=== PATIENT | male | born 1960 | race Caucasian/White ===

== ENCOUNTER 2020-11-05 13:41 | Inpatient (IN) ==
[2020-11-05] MEDS ORDERED: SODIUM CHLORIDE 0.9% 1,000 ML IV STA (14:08)
[2020-11-05 14:43] LABS: Basophils % 0.2 % (0.0-0.8); Hematocrit 47.6 VOL% (42.0-52.0); Hemoglobin 15.7 GM/DL (14.0-18.0); Immature Granulocytes Absolute 0.05 #; Lymphocytes # 0.9 10*3/uL (1.4-4.0); Lymphocytes % 19.3 % (21.2-54.2); Mean Corpuscular Volume 86.9 FL (87-102); Mean Platelet Volume 10.3 FL (9.6-12.0); Monocytes % 5.1 % (1.7-12.7); Neutrophils % 74.4 % (38.7-73.9); Platelet Count 151 T/CUMM (130-400); Red Blood Count 5.48 MC/CUMM (3.8-5.5); Red Cell Distribution Width 12.3 % (9.3-17.3); White Blood Count 4.9 T/CUMM (4-12)
[2020-11-05 14:57] LABS: Calcium 8.3 MG/DL (8.5-10.1); Osmolality,Calculated 268.8 MOS/KG (273-304); Potassium 4.2 MMOL/L (3.5-5.1)
[2020-11-05] MEDS ORDERED: GLUCAGON 1 MG VIAL IM PRN (15:49)
[2020-11-05] MEDS ORDERED: ONDANSETRON 4 MG/2 ML VIAL IV PRN (15:49)
[2020-11-05] MEDS ORDERED: diphenhydrAMINE CAP 25 MG CAPSULE PO PRN (15:49)
[2020-11-05] MEDS ORDERED: DEXTROSE 50% 25 GM/50 ML VIAL IV PRN (15:49)
[2020-11-05] MEDS ORDERED: AZITHROMYCIN INJ 500 MG in SODIUM CHLORIDE 0.9% 250 ML IV ONE (15:49)
[2020-11-05] MEDS ORDERED: MELATONIN 3 MG TABLET PO PRN (15:49)
[2020-11-05] MEDS ORDERED: hydrALAZINE 20 MG/1 ML VIAL IV PRN (15:49)
[2020-11-05] MEDS ORDERED: guaiFENesin/DM ER 600-30 MG TABLET PO PRN (15:49)
[2020-11-05] MEDS: SODIUM CHLORIDE 0.9% 1,000 ML IV SCH (16:20)
[2020-11-05] MEDS: cefTRIAXone 1,000 MG in SODIUM CHLORIDE 0.9% 100 ML IV SCH (17:16)
[2020-11-05] MEDS: ENOXAPARIN 60 MG/0.6 ML SYRINGE SUBCUT SCH (17:18)
[2020-11-05] MEDS: ACETAMINOPHEN 325 MG TABLET PO PRN (18:18)
[2020-11-05] MEDS: FAMOTIDINE 20 MG TABLET PO SCH (21:05)
[2020-11-05] MEDS: ASCORBIC ACID 500 MG TABLET PO SCH (21:05)
[2020-11-06] MEDS: ENOXAPARIN 60 MG/0.6 ML SYRINGE SUBCUT SCH (04:23)
[2020-11-06] MEDS: SODIUM CHLORIDE 0.9% 1,000 ML IV SCH ×2 (04:23→18:10)
[2020-11-06] MEDS: ACETAMINOPHEN 325 MG TABLET PO PRN ×3 (04:33→20:50)
[2020-11-06 05:41] LABS: Hematocrit 43.3 VOL% (42.0-52.0); Hemoglobin 14.5 GM/DL (14.0-18.0); Immature Granulocytes % 0.8 %; Immature Granulocytes Absolute 0.04 #; Lymphocytes # 1.5 10*3/uL (1.4-4.0); Lymphocytes % 30.7 % (21.2-54.2); Mean Corpuscular HGB Conc 33.5 GM/DL (32-36); Mean Corpuscular Volume 87.5 FL (87-102); Mean Platelet Volume 10.7 FL (9.6-12.0); Monocytes % 6.8 % (1.7-12.7); Neutrophils % 61.7 % (38.7-73.9); Platelet Count 120 T/CUMM (130-400); Red Blood Count 4.95 MC/CUMM (3.8-5.5); Red Cell Distribution Width 12.4 % (9.3-17.3)
[2020-11-06 05:58] LABS: PT Patient Result 11.2 SECS (10.5-12.0)
[2020-11-06 06:04] LABS: Atypical Lymphocytes Few; Band Neutrophils 4 % (0-10); Hypochromasia Slight; Lymphocytes 21 % (20-55); Microcytosis 1+; Segmented Neutrophils 65 % (50-85); Total Cells Counted 100
[2020-11-06 06:25] LABS: Albumin 2.7 G/DL (3.4-5.0); Bilirubin,Total 0.4 MG/DL (0.20-1.00); Ferritin 1929.8 ng/mL (26-388); Osmolality,Calculated 271.5 MOS/KG (273-304); Potassium 4.1 MMOL/L (3.5-5.1); Risk Ratio 3.44; Total Protein 6.1 G/DL (6.4-8.2); VLDL Cholesterol 37.2 MG/DL
[2020-11-06 07:31] LABS: Sedimentation Rate-Westergren 25 MM/HR (0-20)
[2020-11-06] MEDS: FAMOTIDINE 20 MG TABLET PO SCH ×2 (08:50→20:49)
[2020-11-06] MEDS: ZINC GLUCONATE 50 MG TABLET PO SCH (08:50)
[2020-11-06] MEDS: CHOLECALCIFEROL 1,000 UNIT TABLET PO SCH (08:51)
[2020-11-06] MEDS: ASCORBIC ACID 500 MG TABLET PO SCH ×2 (08:51→20:49)
[2020-11-06] MEDS: DEXAMETHASONE 4 MG/1 ML VIAL IV SCH (08:51)
[2020-11-06] MEDS: CETIRIZINE 10 MG TABLET PO SCH (08:51)
[2020-11-06] MEDS: APIXABAN 5 MG TABLET PO SCH ×2 (08:51→20:51)
[2020-11-06] MEDS ORDERED: ACETAMINOPHEN 325 MG TABLET PO PRN (09:00)
[2020-11-06] MEDS ORDERED: diphenhydrAMINE 50 MG/1 ML VIAL IV PRN ×2 (09:00)
[2020-11-06] MEDS ORDERED: ONDANSETRON 4 MG/2 ML VIAL IV PRN (09:00)
[2020-11-06] MEDS ORDERED: methylPREDNISolone SOD SUC 125 MG/2 ML VIAL IV PRN (09:00)
[2020-11-06] MEDS ORDERED: CASIRIVIMAB/IMDEVIMAB 1,200 MG in SODIUM CHLORIDE 0.9% 100 ML IV ONE (09:00)
[2020-11-06] MEDS ORDERED: MECLIZINE 25 MG TABLET PO PRN (09:00)
[2020-11-06] MEDS: METOPROLOL TARTRATE 25 MG TABLET PO SCH ×2 (09:48→23:09)
[2020-11-06] MEDS: cefTRIAXone 1,000 MG in SODIUM CHLORIDE 0.9% 100 ML IV SCH (11:09)
[2020-11-06] MEDS ORDERED: KETOROLAC 30 MG/1 ML VIAL IV ONE (18:24)
[2020-11-07] MEDS: SODIUM CHLORIDE 0.9% 1,000 ML IV SCH (02:04)
[2020-11-07 05:55] LABS: Basophils % 0.1 % (0.0-0.8); Hematocrit 43.6 VOL% (42.0-52.0); Hemoglobin 14.1 GM/DL (14.0-18.0); Immature Granulocytes % 1.1 %; Lymphocytes % 11.6 % (21.2-54.2); Mean Corpuscular HGB Conc 32.3 GM/DL (32-36); Mean Corpuscular Volume 89.3 FL (87-102); Mean Platelet Volume 10.4 FL (9.6-12.0); Monocytes % 5.6 % (1.7-12.7); Neutrophils % 81.6 % (38.7-73.9); Platelet Count 149 T/CUMM (130-400); Red Blood Count 4.88 MC/CUMM (3.8-5.5); Red Cell Distribution Width 12.5 % (9.3-17.3); White Blood Count 8.8 T/CUMM (4-12)
[2020-11-07 06:31] LABS: Ferritin 2368.6 ng/mL (26-388); Osmolality,Calculated 280.8 MOS/KG (273-304); Potassium 4.4 MMOL/L (3.5-5.1)
[2020-11-07] MEDS: METOPROLOL TARTRATE 25 MG TABLET PO SCH ×2 (08:40→20:52)
[2020-11-07] MEDS: APIXABAN 5 MG TABLET PO SCH ×2 (08:40→20:53)
[2020-11-07] MEDS: DEXAMETHASONE 4 MG/1 ML VIAL IV SCH (08:40)
[2020-11-07] MEDS: MELOXICAM 7.5 MG TABLET PO SCH (08:41)
[2020-11-07] MEDS: PANTOPRAZOLE 40 MG TABLET PO SCH (08:41)
[2020-11-07] MEDS: OMEGA 3 ACID ETHYL ESTERS 1 GM CAPSULE PO SCH (08:41)
[2020-11-07] MEDS: cefTRIAXone 1,000 MG in SODIUM CHLORIDE 0.9% 100 ML IV SCH (08:41)
[2020-11-07] MEDS: FAMOTIDINE 20 MG TABLET PO SCH ×2 (08:41→20:53)
[2020-11-07] MEDS: CHOLECALCIFEROL 1,000 UNIT TABLET PO SCH (08:57)
[2020-11-07] MEDS: ASCORBIC ACID 500 MG TABLET PO SCH ×2 (08:57→20:52)
[2020-11-07] MEDS: traMADol 50 MG TABLET PO SCH (08:57)
[2020-11-07] MEDS: AZITHROMYCIN 250 MG TABLET PO SCH (08:58)
[2020-11-07] MEDS: CETIRIZINE 10 MG TABLET PO SCH (08:58)
[2020-11-07] MEDS: SIMVASTATIN 20 MG TABLET PO SCH (08:58)
[2020-11-07] MEDS: ZINC GLUCONATE 50 MG TABLET PO SCH (08:58)
[2020-11-07] MEDS ORDERED: REMDESIVIR 200 MG in SODIUM CHLORIDE 0.9% 210 ML IV ONE (09:00)
[2020-11-07] MEDS: ALBUTEROL INHALER 18 GM INH SCH ×2 (16:18→21:16)
[2020-11-08] MEDS: ALBUTEROL INHALER 18 GM INH SCH ×3 (05:19→13:00)
[2020-11-08 07:01] LABS: Basophils % 0.1 % (0.0-0.8); Hematocrit 40.3 VOL% (42.0-52.0); Hemoglobin 13.2 GM/DL (14.0-18.0); Immature Granulocytes % 1.7 %; Immature Granulocytes Absolute 0.12 #; Lymphocytes % 13.9 % (21.2-54.2); Mean Corpuscular HGB Conc 32.8 GM/DL (32-36); Mean Corpuscular Volume 88.4 FL (87-102); Mean Platelet Volume 10.3 FL (9.6-12.0); Monocytes % 10.2 % (1.7-12.7); Neutrophils % 74.1 % (38.7-73.9); Platelet Count 178 T/CUMM (130-400); Red Blood Count 4.56 MC/CUMM (3.8-5.5); Red Cell Distribution Width 12.6 % (9.3-17.3); White Blood Count 7.1 T/CUMM (4-12)
[2020-11-08 07:27] LABS: Band Neutrophils 12 % (0-10); Lymphocytes 10 % (20-55); Segmented Neutrophils 70 % (50-85); Total Cells Counted 100
[2020-11-08 07:28] LABS: Anisocytosis Slight
[2020-11-08 07:58] LABS: Calcium 7.8 MG/DL (8.5-10.1); Ferritin 1982.2 ng/mL (26-388); Osmolality,Calculated 281.7 MOS/KG (273-304)
[2020-11-08] MEDS: PANTOPRAZOLE 40 MG TABLET PO SCH (08:25)
[2020-11-08] MEDS: METOPROLOL TARTRATE 25 MG TABLET PO SCH (08:25)
[2020-11-08] MEDS: cefTRIAXone 1,000 MG in SODIUM CHLORIDE 0.9% 100 ML IV SCH (08:25)
[2020-11-08] MEDS: OMEGA 3 ACID ETHYL ESTERS 1 GM CAPSULE PO SCH (08:25)
[2020-11-08] MEDS: MELOXICAM 7.5 MG TABLET PO SCH (08:25)
[2020-11-08] MEDS: DEXAMETHASONE 4 MG/1 ML VIAL IV SCH (08:25)
[2020-11-08] MEDS: APIXABAN 5 MG TABLET PO SCH (08:25)
[2020-11-08] MEDS: ZINC GLUCONATE 50 MG TABLET PO SCH (08:26)
[2020-11-08] MEDS: SIMVASTATIN 20 MG TABLET PO SCH (08:26)
[2020-11-08] MEDS: CETIRIZINE 10 MG TABLET PO SCH (08:26)
[2020-11-08] MEDS: AZITHROMYCIN 250 MG TABLET PO SCH (08:26)
[2020-11-08] MEDS: traMADol 50 MG TABLET PO SCH (08:26)
[2020-11-08] MEDS: ASCORBIC ACID 500 MG TABLET PO SCH (08:26)
[2020-11-08] MEDS: CHOLECALCIFEROL 1,000 UNIT TABLET PO SCH (08:26)
[2020-11-08] MEDS: FAMOTIDINE 20 MG TABLET PO SCH (09:00)
[2020-11-08] MEDS ORDERED: REMDESIVIR 100 MG in SODIUM CHLORIDE 0.9% 100 ML IV SCH (09:00)
[2020-11-08 19:36] VITALS: BP 107/64
== END 2020-11-08 16:40 | disposition home or self-care (01) | DRG 177 ==
LOC: N.ED 13:41 → N.EDINP 16:48 → N.2E 17:09
PROVIDERS: ADMIT Internal Medicine; ATTEND Internal Medicine